=== PATIENT | male | born 1990 | race Caucasian/White ===

== ENCOUNTER 2021-02-14 16:48 | Emergency (ER) | payer OTHER ==
--- NOTE | 2021-02-14 18:03 | EDM.PDOC ---
ED HPI GENERAL MEDICAL PROBLEM - General Chief Complaint: General Stated Complaint: TIRED THEN STARTED SHAKING Time Seen by Provider: 02/14/21 17:10 Source of Information: Reports: Patient History Limitations: Reports: No Limitations - History of Present Illness INITIAL COMMENTS - FREE TEXT/NARRATIVE: The patient presents for shaking and anxiety. He says he was driving home and was very tired and he started to shake. He decided to stop at a bar and have a drink. He started to shake more and he was more anxious. This has never happened before. He does admit to drinking heavily. He will drink about 6 beers and some shots of liquor. He says he has been drinking more because he has been stressed out. He hates his job and hates his life. He knows he is drinking to much but he does not know how to quit. He also has had suicidal thoughts in the past and he has suicidal thoughts now but he has no plan. He has no fever, chills, cough, chest pain, shortness of breath, abdominal pain, nausea or vomiting. Onset: Sudden Duration: Hour(s): Severity: Moderate Improves with: Reports: None Worsens with: Reports: None Associated Symptoms: Reports: No Other Symptoms - Related Data Allergies Allergy/AdvReac Type Severity Reaction Status Date / Time No Known Allergies Allergy Verified 02/14/21 17:15 Past Medical History - Past Health History Medical/Surgical History: Denies Medical/Surgical History - Past Surgical History Musculoskeletal Surgical History: Reports: Other (See Below) Other Musculoskeletal Surgeries/Procedures:: R wrist fx Social & Family History - Tobacco Use Tobacco Use Status *Q: Current Every Day Tobacco User Years of Tobacco use: 15 Packs/Tins Daily: 1 - Caffeine Use Caffeine Use: Reports: Coffee - Recreational Drug Use Recreational Drug Use: Yes Recreational Drug Type: Reports: Marijuana/Hashish Recreational Drug Use Frequency: Socially ED ROS GENERAL - Review of Systems Review Of Systems: See Below Constitutional: Reports: No Symptoms HEENT: Reports: No Symptoms Respiratory: Reports: No Symptoms Cardiovascular: Reports: No Symptoms Endocrine: Reports: No Symptoms GI/Abdominal: Reports: No Symptoms : Reports: No Symptoms Musculoskeletal: Reports: No Symptoms Skin: Reports: No Symptoms Neurological: Reports: Other (shaking) Psychiatric: Reports: Anxiety ED EXAM, GENERAL - Physical Exam Exam: See Below Exam Limited By: No Limitations General Appearance: Alert, No Apparent Distress Ears: Normal External Exam Nose: Normal Inspection Head: Atraumatic, Normocephalic Neck: Normal Inspection Respiratory/Chest: No Respiratory Distress, Lungs Clear, Normal Breath Sounds Cardiovascular: Regular Rate, Rhythm, No Edema, No Murmur GI/Abdominal: Soft, Non-Tender, No Organomegaly, No Mass Back Exam: Normal Inspection Extremities: Normal Inspection Neurological: Alert, Oriented, No Motor/Sensory Deficits Course - Vital Signs Last Recorded V/S: Last Vital Signs Temp 98.4 F 02/14/21 17:12 Pulse 96 02/14/21 17:12 Resp 20 02/14/21 17:12 BP 155/116 H 02/14/21 17:12 Pulse Ox 98 02/14/21 17:12 - Orders/Labs/Meds Orders: Active Orders 24 hr Category Date Time Status Cardiac Monitoring [RC] . DIRECTED Care 02/14/21 17:34 Active DRUG SCREEN, URINE [URCHEM] Stat Lab 02/14/21 18:00 Received Labs: Laboratory Tests 02/14/21 02/14/21 Range/Units 17:47 17:47 WBC 7.19 (4.23-9.07) K/mm3 RBC 4.81 (4.63-6.08) M/mm3 Hgb 16.2 (13.7-17.5) gm/dl Hct 46.8 (40.1-51.0) % MCV 97.3 H (79.0-92.2) fl MCH 33.7 H (25.7-32.2) pg MCHC 34.6 (32.2-35.5) g/dl RDW Std Deviation 41.9 (35.1-43.9) fL Plt Count 238 (163-337) K/mm3 MPV 9.1 L (9.4-12.3) fl Neut % (Auto) 63.2 (34.0-67.9) % Lymph % (Auto) 23.2 (21.8-53.1) % [place] % (Auto) 9.3 (5.3-12.2) % Eos % (Auto) 3.5 (0.8-7.0) Baso % (Auto) 0.4 (0.1-1.2) % Neut # (Auto) 4.54 (1.78-5.38) K/mm3 Lymph # (Auto) 1.67 (1.32-3.57) K/mm3 [place] # (Auto) 0.67 (0.30-0.82) K/mm3 Eos # (Auto) 0.25 (0.04-0.54) K/mm3 Baso # (Auto) 0.03 (0.01-0.08) K/mm3 Sodium 138 (136-145) mEq/L Potassium 3.5 (3.5-5.1) mEq/L Chloride 100 (98-107) mEq/L Carbon Dioxide 27 (21-32) mEq/L Anion Gap 14.5 (5-15) BUN 10 (7-18) mg/dL Creatinine 0.8 (0.7-1.3) mg/dL Est Cr Clr Drug Dosing 137.47 mL/min Estimated GFR (MDRD) > 60 (>60) mL/min BUN/Creatinine Ratio 12.5 L (14-18) Glucose 79 (74-106) mg/dL Calcium 9.1 (8.5-10.1) mg/dL Magnesium 1.7 L (1.8-2.4) mg/dl Total Bilirubin 0.6 (0.2-1.0) mg/dL AST 31 (15-37) U/L ALT 34 (16-63) U/L Alkaline Phosphatase 39 L (46-116) U/L Total Protein 8.1 (6.4-8.2) g/dl Albumin 4.5 (3.4-5.0) g/dl Globulin 3.6 gm/dL Albumin/Globulin Ratio 1.3 (1-2) TSH 3rd Generation 1.327 (0.358-3.74) uIU/mL Ethyl Alcohol 0.00 (0.00) gm% - Re-Assessments/Exams Free Text/Narrative Re-Assessment/Exam: 02/14/21 18:05 I have ordered some labs. 02/14/21 18:37 His CBC and CMP looks good. His magnesium is normal. His ETOH is 0. I am waiting on the drug screen. 02/14/21 18:49 He is ready to go. He has been dealing with a lot. He has a new job that he hates. He moved to [place] from [place] because he is bisexual and he did not think it was safe there. I want him to follow up with the [facility] and get set up with some counseling and possibly an antidepresent. Departure - Departure Time of Disposition: 18:55 Disposition: Home, Self-Care 01 Condition: Good Clinical Impression: Anxiety, Shaking - Discharge Information *PRESCRIPTION DRUG MONITORING PROGRAM REVIEWED*: Not Applicable *COPY OF PRESCRIPTION DRUG MONITORING REPORT IN PATIENT GE: Not Applicable Referrals: Ana Guidry MD [Primary Care Provider] - 1 Week Forms: ED Department Discharge Additional Instructions: Follow up with Dr Guidry within a week. Try to slow down your drinking. Please return if you are worse. Sepsis Event Note (ED) - Evaluation Sepsis Screening Result: No Definite Risk - Focused Exam Vital Signs: Vital Signs Temp Pulse Resp BP Pulse Ox 02/14/21 17:12 98.4 F 96 20 155/116 H 98 - My Orders Last 24 Hours: My Active Orders 02/14/21 17:34 Cardiac Monitoring [RC] . DIRECTED 02/14/21 18:00 DRUG SCREEN, URINE [URCHEM] Stat - Assessment/Plan Last 24 Hours: My Active Orders 02/14/21 17:34 Cardiac Monitoring [RC] . DIRECTED 02/14/21 18:00 DRUG SCREEN, URINE [URCHEM] Stat
== END 2021-02-14 18:58 | disposition home or self-care (01) ==
LOC: JD.ED 16:48
DX: F41.9 Anxiety disorder, unspecified (principal); Z72.0 Tobacco use
CPT/HCPCS: 36415; 80053; 80306; 80307; 83735; 84443; 85025; 99283